=== PATIENT | female | born 1975 | race Caucasian/White ===

== ENCOUNTER 2024-09-07 05:40 | Day surgery (SDC) | payer MEDICAID, SELFPAY ==
[2024-09-06 10:59] VITALS: BMI 26.9
[2024-09-06 11:43] LABS: Basophils % (Auto) 1 % (0-2.5); Eosinophils # (Auto) 0.1 Thou/mm3 (0.0-0.5); Eosinophils % (Auto) 2 % (0-10); Hematocrit 37.3 % (36.0-46.0); Hemoglobin 12.5 g/dL (12.0-16.0); Immature Granulocytes % (Auto) 0 % (0-0); Immature Granulocytes Auto 0.01 Thou/mm3 (0.00-0.00); Lymphocytes # (Auto) 1.6 Thou/mm3 (1.0-4.8); Lymphocytes % (Auto) 37 % (10-50); Mean Corpuscular HGB Conc 33.5 g/dl (31.0-37.0); Mean Corpuscular Hemoglobin 29.8 pg (25.0-35.0); Mean Corpuscular Volume 89 fL (80-100); Monocytes # (Auto) 0.5 Thou/mm3 (0.0-0.8); Monocytes % (Auto) 10 % (0-12); Neutrophils # (Auto) 2.2 Thou/mm3 (1.8-7.7); Neutrophils % (Auto) 49 % (37-80); Nucleated Red Blood Cell % 0 /100 WBC (0); Platelet Count 192 Thou/mm3 (140-440); RDW Standard Deviation 41.4 fL (36.4-46.3); Red Blood Count 4.19 Miln/mm3 (4.00-5.20); White Blood Count 4.4 Thou/mm3 (3.6-11.0)
[2024-09-06 12:03] LABS: Beta HCG,Quantitative 2 mIU/mL (<5.0)
[2024-09-06 12:46] LABS: Hepatitis A Antibody IgM Non Reactive (Non React); Hepatitis B Core Antibody IgM Non Reactive (Non React); Hepatitis B Surface Antigen Non Reactive (Non React); Hepatitis C Antibody Non Reactive (Non React)
[2024-09-06 13:40] LABS: HIV (1&2) Antibody Rapid Non-Reactive
[2024-09-07] VITALS (13 sets, daily range): BP systolic 74–155; BP diastolic 42–131; PULSE 61–100; RESP 12–20; TEMP 36.2–36.8; O2SAT 85–100; BMI 26.9
--- NOTE | 2024-09-07 08:26 | SUR.PHASEI ---
0826 Patient arrived to recovery resting comfortably in [facility], on oxygen 10L via oxy mask with an oral airway in place, breathing unlabored, blood pressure elevated 155/131, anesthesia provider aware of this blood pressure, no new orders at this time-will monitor patient, the remainder of patient vital signs are within normal limited, dressing intact to vaginal area; peripad, no bleeding noted, report received from Becky CUADRA and Barbara PIERCE/ Kylee SRNA
--- NOTE | 2024-09-07 08:37 | SUR.PHASEI ---
0831 Patients blood pressure, dropped 74/42, patient began obstructing, oxygen decreasing, head-chin lift provided to patient, oxygen turned to flush, anesthesia provider at bedside, patient is obtunded 0832 Medication administered by anesthesia provider for low blood pressure 0834 Narcan 0.2mg via IV administered to patient by anesthesia provider Danisha WORTHINGTON/Barbara 0835 Patient blood pressure improved 106/56 0837 Patient drowsy, responding to verbal prompting, opening her eyes, oral airway removed, patient tolerated well, will continue to monitor patient
--- NOTE | 2024-09-07 09:11 | SUR.PHASEII ---
patient sitting up in bed awake, eating ice chips
--- NOTE | 2024-09-07 09:26 | SUR.PHASEII ---
patients at bedside with patient
--- NOTE | 2024-09-07 09:31 | SUR.PHASEII ---
patient sitting up in bed drinking 7up; tolerating well, denies nausea
--- NOTE | 2024-09-07 09:32 | ESOP_ITS ---
Operative Note - GENERAL MAINTENANCE MECHANIC Procedure Date of procedure: 09/07/24 Procedure Performed: Hysteroscopy, diagnostic Endometrial biopsy Indication: Postmenopausal bleeding, persistent Endometrial thickness 2 mm Office biopsy failed Pre-Op diagnosis: Cervical stenosis Post-Op diagnosis: Same Anesthesia type: General Procedure description: The patient was seen prior to surgery. The potential benefits and risks of the procedure, the likelihood of success, and the problems related to recuperation have been discussed with patient who agrees to proceed. The possible results of nontreatment and significant alternatives to the proposed procedure have also been explained, along with the risks and benefits of the alternatives. Risks and benefits of chosen anesthetic/sedation and possible use of blood/blood products (if appropriate) were discussed.The patient was identified as Evelina Bermeo and the procedure verified. A time out was held reviewing the patient identifiers, procedure planned and allergies. At this point the procedure was begun. The patient was positioned and prepped in routine fashion in the dorsal lithotomy position using yellowfin stirups. On examination under anesthesia,the uterus was retroverted to a normal size. Bladder was drained by catheter. A weighted speculum was then placed into the patient's posterior vagina. A isidro was used to expose the anterior lip of the cervix which was then grasped by a single tooth tenaculum.The cervix was found to be stenotic, started dilating with a lacrimal dilator and gradually increased to a size 6 Hegar dilator. The hysteroscope was then placed under direct visualization. Warm lactated Ringer's was used as a distention medium. The patient's uterus was found to have clean endometrial cavity without any polyps. Pictures were taken. Hysteroscope was removed and we proceeded with the endometrial biopsy. There was minimal bleeding noted and tenaculum was removed. Hemostasis was acheived with a ringed forcep on anterior cervix. Estimated blood loss (ml): 5 Findings: No endometrial polyp seen Surgical staff Operation Date: 09/07/24 07:35 <No data on this case meets the specified criteria> Diagnosis Problem List Completed Was Problem List Reviewed/Reconciled?: Yes
--- NOTE | 2024-09-07 10:36 | SUR.PHASEII ---
1036 Patient meets discharge criteria from recovery, awake and alert, breathing unlabored, vital signs stable, denies pain, dressing intact; no bleeding noted, voided in the restroom prior to discharge, assisted with dressing into her clothing by her , drinking fluids; denies nausea, discharge instructions given to patient and patients , signed discharge instructions. Patient given all her belongings prior to discharge, transported via wheelchair and left in a private vehicle.
== END 2024-09-07 10:36 | disposition home or self-care (01) ==
PROVIDERS: PCP Family Medicine; Referring Provider Student in an Organized Health Care Education/Training Program; Visit Provider Student in an Organized Health Care Education/Training Program
PROC: 0UJD8ZZ Inspection of Uterus and Cervix, Via Natural or Artificial Opening Endoscopic (ICD-10-PCS; CPT 58555; principal; 2024-09-07 07:30)
DX: N85.01 Benign endometrial hyperplasia (principal); M48.02 Spinal stenosis, cervical region
CPT/HCPCS: 58558; 36415; 80074; 84702; 85025; 86703; 86850; 86900; 86901; A4217; A4649; J0131; J0690; J1100; J1885; J2250; J2371; J2405; J2704; J3010; J3490; J1596